=== PATIENT | female | born 2000 | race Caucasian/White ===

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

== ENCOUNTER 2020-06-06 08:52 | Emergency (ER) | payer BC ==
[~2020-06-06] VITALS: Ht 170.2 cm; Wt 91.9 kg
--- NOTE | 2020-06-06 09:05 | Emergency Department Note ---
History of Present Illnes History of Present Illness Chief Complaint: Eye, Ear, Nose, Throat, Dental History of Present Illness This is a 19 year old female with onset of throat pain since this AM . Historian: Patient, Family Member Arrival Mode: Car Onset (how long ago): day(s) (1) Radiation: Reports non-radiation Severity: mild Onset quality: sudden Duration (how long): hour(s) Timing of current episode: constant Progression: worsening Chronicity: new Context: Denies recent illness, Denies recent surgery, Denies recent immobilization, Denies recent travel, Denies trauma/injury, Denies new medications, Denies hx of DVT/PE, Denies non-compliance w/ medications, Denies other Relieving factors: none Exacerbating factors: none Past Medical/Family History Physician Review I have reviewed the patient's past medical and family history. Any updates have been documented here. Past Medical History Recent Fever: No Clinical Suspicion of Infectio: Yes New/Unexplained Change in Ment: No Past Medical History: None Past Surgical History: None Social History Smoking Cessation: Current some day smoker Alcohol Use: Social Physically hurt or threatened: No Other Last Tetanus: 2014 Review of Systems Review of Systems Constitutional: Reports no symptoms EENTM: Reports throat pain Cardiovascular: Reports no symptoms Respiratory: Reports no symptoms Gastrointestinal: Reports no symptoms Genitourinary: Reports no symptoms Musculoskeletal: Reports no symptoms Integumentary: Reports no symptoms Neurological: Reports no symptoms Psychological: Reports no symptoms Endocrine: Reports no symptoms Hematological/Lymphatic: Reports no symptoms Physical Exam Related Data Allergies: Coded Allergies: No Known Allergies (Unverified , 07/13/18) Triage Vital Signs Vital Signs Date Time Temp Pulse Resp B/P (MAP) Pulse Ox O2 Delivery O2 Flow Rate FiO2 06/06/20 08:55 98.4 90 16 127/77 98 Room Air Vital signs reviewed: Yes Physical Exam CONSTITUTIONAL Constitutional: Present well-developed, Present well-nourished HENT HENT: Present normocephalic, Present atraumatic, Present oropharynx clear/moist, Present nose normal, Present erythema HENT L/R: Present left ext ear normal, Present right ext ear normal EYES Eyes: Reports PERRL, Reports conjunctivae normal NECK Neck: Present ROM normal PULMONARY Pulmonary: Present effort normal, Present breath sounds normal CARDIOVASCULAR Cardiovascular: Present regular rhythm, Present heart sounds normal, Present capillary refill normal, Present normal rate GASTROINTESTINAL Abdominal: Present soft, Present nontender, Present bowel sounds normal GENITOURINARY Genitourinary: Present exam deferred SKIN Skin: Present warm, Present dry MUSCULOSKELETAL Musculoskeletal: Present ROM normal NEUROLOGICAL Neurological: Present alert, Present oriented x 3, Present no gross motor or sensory deficits PSYCHOLOGICAL Psychological: Present mood/affect normal, Present judgement normal Assessment & Plan Medical Decision Making MDM Diff Dx : strep pharyngitis, [employer], viral pharyngitis Assessment & Plan Final Impression: (1) Acute pharyngitis Depart Disposition: HOME, SELF-retirement Meds Active Scripts Phenazopyridine Hcl (PYRIDIUM) 100 Mg Tablet, 200 MG PO TID PRN for PAIN, #9 MG Prov:CESAR AIKEN NP 04/18/18 Cefdinir (OMNICEF) 300 Mg Capsule, 300 MG PO BID for 7 Days, #14 MG Prov:CESAR AIKEN NP 04/18/18 DAMIR HAND DO Jun 06, 2020 09:05
--- OUTSIDE RECORDS SUMMARY | 2020-06-06 09:19 | XMS REPORT | Continuity of Care Document ---
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 ESTRELLITA/TUBES: None LUNGS: No consolidations or edema. PLEURA: No effusio ns or pneumothorax. HEART AND MEDIASTINUM: Normal size and contour. SUSIE ESTRELLITA AND SOFT TISSUES: No acute findings. IMPRESSION: No acute thoracic a bnormality. Signed by: Dr. Chacho Walker M.D. on 05/08/2017 11:0 2 PM Dictated By: CHACHO WALKER MD 01 Transcribed By: AZCK on 05/08/172301 COPY TO: MAGDIEL LEY MD
== END 2020-06-06 09:20 | disposition home or self-care (01) ==
LOC: FSED 08:56
DX: J02.9 Acute pharyngitis, unspecified (principal); Z72.0 Tobacco use
CPT/HCPCS: 99282

== ENCOUNTER → 2020-10-24 | Day surgery (SDC) | payer OTHER ==
[~2020-10-24] MED LIST changes: +ACETAMINOPHEN 1000 MG/100 ML 100 ML IV ONE; +BUPIVACAINE HCL 0.5% INJ 30 ML VIAL INJ ONE; +CEFAZOLIN SOD 1 GM/NS 50ML 50 ML IV ONE; +DEXAMETHASONE SOD PHOS INJ 4 MG/ML VIAL ONE; +KETOROLAC TROMETHAMINE 30 MG/ML VIAL ONE; +LIDOCAINE HCL 2% JELLY 5 ML TUBE ONE; +LIDOCAINE HCL 2% LOCAL INJ 5 ML SDV VIAL INJ ONE; +MEPERIDINE HCL INJ 25 MG/ML VIAL ONE; +ONDANSETRON HCL INJ 2MG/ML 2ML 2 MG/ML VIAL ONE; +POVIDONE IODINE 0.05% 0.05 % ML PO ONE; +PROPOFOL IV EMULSION 10 MG/ML 20 ML VIAL ONE; +SEVOFLURANE INHAL SOLN 250 ML PEN BTL ONE
[2020-10-24 08:55] VITALS: BP 112/84
== END | disposition home or self-care (01) ==
LOC: OR 05:13
PROVIDERS: ATTEND Podiatrist Foot & Ankle Surgery
DX: M20.11 Hallux valgus (acquired), right foot (principal); Z01.812 Encounter for preprocedural laboratory examination; Z20.822 Contact with and (suspected) exposure to COVID-19
CPT/HCPCS: 28297; 81025; C1713 ×6; J0131; J0690; J1100; J1885; J2001 ×2; J2175; J2405; J2704; U0002

== ENCOUNTER → 2021-09-14 | Outpatient (CLI) | payer BC, OTHER ==
[~2021-09-14] MED LIST changes: -ACETAMINOPHEN 1000 MG/100 ML 100 ML IV ONE; -BUPIVACAINE HCL 0.5% INJ 30 ML VIAL INJ ONE; -CEFAZOLIN SOD 1 GM/NS 50ML 50 ML IV ONE; -DEXAMETHASONE SOD PHOS INJ 4 MG/ML VIAL ONE; -KETOROLAC TROMETHAMINE 30 MG/ML VIAL ONE; -LIDOCAINE HCL 2% JELLY 5 ML TUBE ONE; -LIDOCAINE HCL 2% LOCAL INJ 5 ML SDV VIAL INJ ONE; -MEPERIDINE HCL INJ 25 MG/ML VIAL ONE; -ONDANSETRON HCL INJ 2MG/ML 2ML 2 MG/ML VIAL ONE; -POVIDONE IODINE 0.05% 0.05 % ML PO ONE; -PROPOFOL IV EMULSION 10 MG/ML 20 ML VIAL ONE; -SEVOFLURANE INHAL SOLN 250 ML PEN BTL ONE
== END ==
LOC: RAD 14:55
PROVIDERS: ATTEND Family Medicine
DX: M54.2 Cervicalgia (principal); M54.6 Pain in thoracic spine; V89.2XXA Person injured in unspecified motor-vehicle accident, traffic, initial encounter
CPT/HCPCS: 72052; 72070

== ENCOUNTER 2021-11-28 04:21 | Emergency (ER) | payer BC ==
[~2021-11-28] VITALS: Ht 170.2 cm; Wt 95.3 kg
[2021-11-28] MEDS ORDERED: ONDANSETRON HCL INJ 2MG/ML 2ML 2 MG/ML VIAL ONE (05:17)
[2021-11-28] MEDS ORDERED: SODIUM CHLORIDE 0.9% 1000ML 1,000 ML ONE (05:17)
[2021-11-28] MEDS ORDERED: ONDANSETRON HCL INJ 2MG/ML 2ML 2 MG/ML VIAL IV STA (05:22)
[2021-11-28] MEDS ORDERED: SODIUM CHLORIDE 0.9% 1000ML 1,000 ML IV ONE (05:30)
[2021-11-28] MEDS ORDERED: FAMOTIDINE 20 MG/2 ML VIAL IV STA (05:37)
[2021-11-28] MEDS ORDERED: SODIUM CHLORIDE 0.9% 500ML 500 ML IV ONE (05:45)
[2021-11-28] MEDS ORDERED: PROMETHAZINE 25MG/ NS 50ML (IV) IV ONE (05:45)
[2021-11-28] MEDS ORDERED: FAMOTIDINE 20 MG/2 ML VIAL IV ONE (05:49)
[2021-11-28] MEDS ORDERED: PROMETHAZINE HCL (IM) 25 MG/ML VIAL IM ONE (05:49)
[2021-11-28] MEDS ORDERED: IOPAMIDOL 370 MG/ML 100 ML INFUS..BTL INJ ONE (05:54)
[2021-11-28] MEDS ORDERED: FAMOTIDINE40 MG PO (06:56)
[2021-11-28] MEDS ORDERED: PANTOPRAZOLE SO40 MG PO (06:56)
[2021-11-28] MEDS ORDERED: ONDANSETRON ODT4 MG PO (06:57)
[2021-11-28] MEDS ORDERED: ULTRAM 50MG50 MG PO ×2 (07:10→12:08)
== END 2021-11-28 08:11 | disposition home or self-care (01) ==
LOC: FSED 04:45
DX: R11.2 Nausea with vomiting, unspecified (principal); K29.70 Gastritis, unspecified, without bleeding; R10.33 Periumbilical pain; F17.210 Nicotine dependence, cigarettes, uncomplicated
CPT/HCPCS: 74177; 80048; 80076; 81003; 81025; 85025; 99284; J2405; J2550; J7030; Q9967